=== PATIENT | male | born 1950 | race African-American/Black ===

== ENCOUNTER 2020-04-18 01:35 | Inpatient (IN) | payer MEDICARE, OTHER ==
[~2020-04-18] VITALS: Ht 195.6 cm; Wt 97.1 kg
[2020-04-18] VITALS (17 sets, daily range): BP systolic 126–182; BP diastolic 71–138
[2020-04-18] MEDS ORDERED: NITROGLYCERIN 0.4MG TABLET SL SL PRN (02:00)
[2020-04-18] MEDS ORDERED: ASPIRIN 81MG TABLET PO ONE (02:00)
[2020-04-18 02:55] LABS: BASOPHILS % 0.6 % (0.0-2.0); EOSINOPHILS % 1.3 % (0.0-5.0); HEMATOCRIT. 44.1 % (42.0-52.0); HEMOGLOBIN. 14.7 g/dL (14.0-18.0); LYMPHOCYTES % 35.6 % (20.0-50.0); MEAN CORPUSCULAR HEMOGLOBIN 31.9 pg (28.0-32.0); MEAN CORPUSCULAR VOLUME 95.6 fL (80.0-94.0); MEAN PLATELET VOLUME 9.1 fl (7.4-10.4); MONOCYTES % 12.3 % (2.0-8.0); NEUTROPHILS % 50.2 % (40.0-76.0); PLATELET 168 x1000/uL (130-400); RED BLOOD CELL COUNT 4.61 mill/uL (4.7-6.1); RED CELL DISTRIBUTION WIDTH 13.8 % (11.6-14.6)
[2020-04-18 03:02] LABS: CHLORIDE 107 mEq/L (98-107)
[2020-04-18 03:06] LABS: ETHANOL BLOOD < 10 mg/dL
[2020-04-18] MEDS ORDERED: HEPARIN 5000 UNITS/ML VIAL IV SCH (03:30)
[2020-04-18] MEDS ORDERED: MORPHINE SULFATE 4 MG/ML CPJ (NOT FOR IM USE) IV ONE (03:30)
[2020-04-18 04:10] LABS: *COCAINE SCREEN URINE NEGATIVE (NEGATIVE)
[2020-04-18 04:11] LABS: *AMPHETAMINES SCREEN URINE NEGATIVE (NEGATIVE); *BARBITURATES SCREEN URINE NEGATIVE (NEGATIVE); *BENZODIAZEPINES SCREEN URINE NEGATIVE (NEGATIVE); CANNABINOID URINE SCREEN NEGATIVE (NEGATIVE); METHADONE URINE SCREEN NEGATIVE (NEGATIVE); OPIATES URINE SCREEN NEGATIVE (NEGATIVE); PHENCYCLIDINE URINE SCREEN NEGATIVE (NEGATIVE)
[2020-04-18 04:28] LABS: PARTIAL THROMBOPLASTIN TIME 26.7 sec (23.4-31.0); PROTHROMBIN TIME 10.7 sec (9.6-11.0)
[2020-04-18] MEDS ORDERED: HEPARIN 25,000 UNITS PREMIX 250 ML IV PRN (05:00)
[2020-04-18] MEDS ORDERED: ACET325C7 PO (06:14)
[2020-04-18] MEDS ORDERED: ASPI-986 PO (06:14)
[2020-04-18] MEDS ORDERED: ACETAMINOPHEN 325MG TABLET PO PRN (07:45)
[2020-04-18] MEDS ORDERED: DOCUSATE SODIUM 100MG CAPSULE PO PRN (07:45)
[2020-04-18] MEDS ORDERED: GUAIFENESIN 200MG/10ML SUGAR FREE UDC PO PRN (07:45)
[2020-04-18] MEDS ORDERED: CLONIDINE 0.1MG TABLET PO PRN (07:45)
[2020-04-18] MEDS ORDERED: ONDANSETRON HCL 4MG/2ML INJ IV PRN (07:45)
[2020-04-18] MEDS ORDERED: MORPHINE SULFATE 2 MG/ML CPJ (NOT FOR IM USE) IV PRN (07:45)
[2020-04-18] MEDS ORDERED: LORAZEPAM 2MG/ML CPJ IV PRN (07:45)
[2020-04-18] MEDS ORDERED: HYDROCODONE/ACETAMINOPHEN 10/325MG TABLET PO PRN (07:45)
[2020-04-18] MEDS ORDERED: DIPHENHYDRAMINE 50MG/ML VIAL IV PRN (07:45)
[2020-04-18] MEDS ORDERED: IPRATROPIUM/ALBUTEROL 0.5-3(2.5)MG/3ML NEB HHN PRN (07:45)
[2020-04-18] MEDS ORDERED: MAGNESIUM/ALUMINUM HYDROXIDE/SIMETHICONE 30ML UDC PO PRN (07:45)
[2020-04-18] MEDS ORDERED: HYDRALAZINE 20MG/ML VIAL IV PRN (07:45)
[2020-04-18] MEDS ORDERED: FUROSEMIDE 40MG/4ML VIAL IVP NR (08:00)
[2020-04-18] MEDS ORDERED: HEPARIN SODIUM 1,000 UNIT/1ML VIAL IV ONE (09:55)
[2020-04-18] MEDS ORDERED: MIDAZOLAM HCL 2 MG/2 ML VIAL ONE ×2 (10:23→11:18)
[2020-04-18] MEDS ORDERED: IODIXANOL 320MG/ML 100 ML BOTTLE IV ONE ×2 (10:24→11:53)
[2020-04-18] MEDS ORDERED: LIDOCAINE HCL 1% 20ML VIAL (Pyxis) INJ ONE (10:24)
[2020-04-18] MEDS ORDERED: FENTANYL CITRATE/PF 50MCG/ML 2ML VIAL ONE (10:24)
[2020-04-18] MEDS ORDERED: VERAPAMIL HCL 2.5 MG/1 ML 2ML VIAL IV ONE (10:28)
[2020-04-18] MEDS ORDERED: CLOPIDOGREL 75MG TABLET ONE (10:58)
[2020-04-18] MEDS ORDERED: IOHEXOL-300 100 ML BOTTLE ONE (11:07)
[2020-04-18] MEDS ORDERED: ASPIRIN 325MG TABLET ONE (11:53)
[2020-04-18] MEDS: SODIUM CHLORIDE 0.45% 700 ML IV SCH ×2 (13:01→21:15)
[2020-04-18] MEDS: SODIUM CHLORIDE 0.9% INJ 3ML FLUSH IVF SCH ×2 (13:04→22:53)
[2020-04-18] MEDS: FOLIC ACID 1MG TABLET PO SCH (16:11)
[2020-04-18] MEDS: THIAMINE HCL 100MG TABLET PO SCH (16:11)
[2020-04-18] MEDS: MULTIVITAMINS,THER W-MINERALS TABLET PO SCH (16:11)
[2020-04-18 16:26] LABS: CREATINE KINASE MB FRACTION 11.9 ng/mL (0.5-3.6)
[2020-04-18] MEDS ORDERED: ATORVASTATIN CALCIUM 40MG TABLET PO SCH (21:00)
[2020-04-18] MEDS ORDERED: FAMOTIDINE 20MG TABLET PO SCH (21:00)
[2020-04-18] MEDS: METOPROLOL TARTRATE 25MG TABLET PO SCH (21:14)
[2020-04-19] VITALS (8 sets, daily range): BP systolic 121–157; BP diastolic 58–86
[2020-04-19 00:03] LABS: CREATINE KINASE MB FRACTION 8.4 ng/mL (0.5-3.6)
[2020-04-19] MEDS: SODIUM CHLORIDE 0.9% INJ 3ML FLUSH IVF SCH (06:45)
[2020-04-19] MEDS: SODIUM CHLORIDE 0.45% 700 ML IV SCH (06:45)
[2020-04-19 07:16] LABS: BASOPHILS % 0.3 % (0.0-2.0); EOSINOPHILS % 0.3 % (0.0-5.0); HEMATOCRIT. 41.8 % (42.0-52.0); HEMOGLOBIN. 14.1 g/dL (14.0-18.0); MEAN CORPUSCULAR HEMOGLOBIN 32.4 pg (28.0-32.0); MEAN CORPUSCULAR VOLUME 95.9 fL (80.0-94.0); MONOCYTES % 13.8 % (2.0-8.0); NEUTROPHILS % 59.6 % (40.0-76.0); PLATELET 160 x1000/uL (130-400); RED BLOOD CELL COUNT 4.36 mill/uL (4.7-6.1); RED CELL DISTRIBUTION WIDTH 13.7 % (11.6-14.6)
[2020-04-19 07:33] LABS: CHLORIDE 106 mEq/L (98-107)
[2020-04-19] MEDS: METOPROLOL TARTRATE 25MG TABLET PO SCH (08:35)
[2020-04-19] MEDS: THIAMINE HCL 100MG TABLET PO SCH (08:36)
[2020-04-19] MEDS: MULTIVITAMINS,THER W-MINERALS TABLET PO SCH (08:36)
[2020-04-19] MEDS: FOLIC ACID 1MG TABLET PO SCH (08:36)
[2020-04-19] MEDS ORDERED: ASPIRIN 81MG TABLET PO SCH (09:00)
[2020-04-19] MEDS ORDERED: CLOPIDOGREL 75MG TABLET PO SCH (09:00)
[2020-04-19] MEDS ORDERED: LISINOPRIL 5MG TABLET PO SCH (10:30)
[2020-04-19] MEDS ORDERED: METOPROLOL TARTRATE 25MG TABLET PO SCH (21:00)
== END 2020-04-19 13:57 | disposition home or self-care (01) | DRG 246 ==
LOC: ER 01:35 → 8WST 03:39 → ENRESERV 05:18 → 3WST 12:07
PROVIDERS: ADMIT Internal Medicine; ATTEND Internal Medicine
PROC: 027135Z Dilation of Coronary Artery, Two Arteries with Two Drug-eluting Intraluminal Devices, Percutaneous Approach (ICD-10-PCS; principal; 2020-04-18)
PROC: B2111ZZ Fluoroscopy of Multiple Coronary Arteries using Low Osmolar Contrast (ICD-10-PCS; 2020-04-18)
DX: I21.4 Non-ST elevation (NSTEMI) myocardial infarction (principal); I50.31 Acute diastolic (congestive) heart failure; I10 Essential (primary) hypertension; R79.89 Other specified abnormal findings of blood chemistry; R09.89 Other specified symptoms and signs involving the circulatory and respiratory systems; E87.70 Fluid overload, unspecified; K21.9 Gastro-esophageal reflux disease without esophagitis; I25.10 Atherosclerotic heart disease of native coronary artery without angina pectoris; R73.03 Prediabetes; E78.5 Hyperlipidemia, unspecified; R00.1 Bradycardia, unspecified; I25.2 Old myocardial infarction; Z91.19 Patient's noncompliance with other medical treatment and regimen; Z79.82 Long term (current) use of aspirin; Z82.49 Family history of ischemic heart disease and other diseases of the circulatory system
CPT/HCPCS: 36415; 71045; 76700; 80048; 80053; 80061; 80305; 80320; 82550; 82553; 83036; 83880; 84484; 85025; 85347; 92928; 93005; 93306; 93458; 93970; 99291; C1725; C1769; C1874; C1887; C1893; J0360; J1644; J1940; J2250; J2270; J3010; J3490; Q9967; G0480

== ENCOUNTER 2020-07-24 23:13 | Emergency (ER) | payer MEDICARE, OTHER ==
[~2020-07-24] VITALS: Ht 195.6 cm; Wt 96.0 kg
[~2020-07-24 23:13] MED LIST: ACET325C7 PO
[2020-07-25] MEDS ORDERED: CLONIDINE 0.2MG TABLET PO ONE (00:45)
[2020-07-25 01:19] LABS: HEMATOCRIT. 42.3 % (42.0-52.0); HEMOGLOBIN. 14.2 g/dL (14.0-18.0); MEAN CORPUSCULAR HEMOGLOBIN 31.1 pg (28.0-32.0); MEAN CORPUSCULAR VOLUME 92.9 fL (80.0-94.0); MEAN PLATELET VOLUME 8.3 fl (7.4-10.4); PLATELET 148 x1000/uL (130-400); RED BLOOD CELL COUNT 4.55 mill/uL (4.7-6.1)
[2020-07-25 01:23] LABS: CHLORIDE 103 mEq/L (98-107)
[2020-07-25 05:41] LABS: ATYPICAL LYMPHOCYTES 1; PLATELET ESTIMATE NORMAL
[2020-07-25 06:00] VITALS: BP 111/83
== END 2020-07-25 06:56 | disposition home or self-care (01) ==
LOC: ER 23:13
DX: R07.89 Other chest pain (principal); I25.2 Old myocardial infarction; R03.0 Elevated blood-pressure reading, without diagnosis of hypertension
CPT/HCPCS: 36415; 71045; 80053; 83880; 84484; 85025; 93005; 99283; 99284

== ENCOUNTER 2022-12-15 09:00 | Emergency (ER) | payer MEDICARE, MEDICAID ==
[~2022-12-15] VITALS: Ht 195.6 cm; Wt 100.0 kg
[2022-12-15 11:05] LABS: BASOPHILS % 0.3 % (0.0-2.0); EOSINOPHILS % 0.3 % (0.0-5.0); HEMATOCRIT. 37.5 % (42.0-52.0); HEMOGLOBIN. 12.6 g/dL (14.0-18.0); LYMPHOCYTES % 20.6 % (20.0-50.0); MEAN CORPUSCULAR HEMOGLOBIN 31.3 pg (28.0-32.0); MEAN CORPUSCULAR VOLUME 93.1 fL (80.0-94.0); MEAN PLATELET VOLUME 7.8 fl (7.4-10.4); MONOCYTES % 9.7 % (2.0-8.0); NEUTROPHILS % 69.1 % (40.0-76.0); PLATELET 153 x1000/uL (130-400); RED BLOOD CELL COUNT 4.02 mill/uL (4.7-6.1); RED CELL DISTRIBUTION WIDTH 15.7 % (11.6-14.6)
[2022-12-15 11:09] LABS: CHLORIDE 107 mEq/L (98-107)
[2022-12-15] MEDS ORDERED: KETOROLAC 60MG/2ML VIAL IM ONE (11:30)
[2022-12-15 11:44] VITALS: BP 179/99
[2022-12-15] MEDS ORDERED: IBUP-2029 MT (12:00)
[2022-12-15] MEDS ORDERED: T3 PO (12:00)
[2022-12-15 12:48] LABS: CLARITY URINE CLEAR (CLEAR); COLOR URINE YELLOW (YELLOW); KETONES URINE 2+ (NEGATIVE); LEUKOCYTE ESTERASE URINE NEGATIVE (NEGATIVE); NITRITE URINE NEGATIVE (NEGATIVE); OCCULT BLOOD URINE NEGATIVE (NEGATIVE); PH URINE 5.5 (4.5-8.0); PROTEIN URINE 1+ (NEGATIVE); SPECIFIC GRAVITY URINE 1.017 (1.005-1.030)
== END 2022-12-15 12:28 | disposition home or self-care (01) ==
LOC: ER 09:08
DX: C79.51 Secondary malignant neoplasm of bone (principal)
CPT/HCPCS: 36415; 74176; 80053; 81003; 85025; 96372; 99285; J1885

== ENCOUNTER 2023-04-08 07:07 | Emergency (ER) | payer BC, MEDICAID ==
[~2023-04-08] VITALS: Ht 182.9 cm; Wt 72.0 kg
[~2023-04-08 07:07] MED LIST changes: -ACET325C7 PO; +ASPI-1406 PO; +CARV12.545 PO; +CLOP75TA33 PO; +T3 PO; +TAMS-11 PO
[2023-04-08 07:24] VITALS: TEMP 98.3; O2SAT 99
[2023-04-08] MEDS ORDERED: IBUPROFEN 800MG TABLET PO ONE (08:30)
[2023-04-08] MEDS ORDERED: HYDROMORPHONE HCL/PF 2MG/ML CPJ IM PRN (08:30)
[2023-04-08] MEDS ORDERED: IBUPROFEN 400MG TABLET PO SCH (09:00)
[2023-04-08 10:21] VITALS: BP 157/70; PULSE 87; RESP 20
[2023-04-08] MEDS ORDERED: HYDR-4001 MT (11:15)
== END 2023-04-08 16:33 | disposition home or self-care (01) ==
LOC: ER 08:13
DX: M54.50 Low back pain, unspecified (principal); I25.2 Old myocardial infarction; I10 Essential (primary) hypertension
CPT/HCPCS: 96372; 99283